=== PATIENT | female | born 2005 | race Caucasian/White ===

== ENCOUNTER 2025-05-07 21:17 | Emergency (ER) | payer OTHER ==
[2025-05-07] MEDS ORDERED: diphenhydrAMINE 50 MG/ML VIAL ONE (22:51)
[2025-05-07] MEDS ORDERED: Metoclopramide HCl 10 MG (2 mL) VIAL ONE (22:52)
[2025-05-07 22:56] LABS: #Basophils 0.03 10x3/uL (0.0-0.2); #Eosinophils 0.05 10x3/uL (0.0-0.5); #Monocytes 0.75 10x3/uL (0.0-1.1); #Neutrophils 5.93 10x3/uL (1.5-8.4); %Basophils 0.3 % (0.0-2.0); %Eosinophils 0.6 % (0.0-6.0); %Lymphocytes 22.7 % (18.0-47.0); %Monocytes 8.6 % (0.0-10.0); %Neutrophils 67.6 % (40.0-75.0); Hematocrit 37.2 % (34.9-44.5); Hemoglobin 12.8 g/dL (12.0-15.5); Mean Corpuscular Hemoglobin 30.8 pg (27.0-33.0); Mean Corpuscular Volume 89.6 fL (81.6-98.3); Platelet Count 347 10x3/uL (150-450); Red Blood Cell (RBC) Count 4.15 10x6/uL (3.90-5.03); White Blood Cell (WBC) Count 8.77 10x3/uL (3.5-10.5)
[2025-05-07 23:19] LABS: BHCG - Serum Negative (NEGATIVE); Pregs Control Background? CLEAR/WHITE (CLR/WHITE); Pregs Control Bar Appear? YES (CONTROL BAR)
[2025-05-07 23:26] LABS: ALT (SGPT) 8 U/L (Less than 34); AST (SGOT) 12 U/L (11-34); Albumin 5.0 g/dL (3.1-4.5); Alkaline Phosphatase 69 U/L (40-100); Anion Gap 11 mmol/L (10-20); BUN (Urea Nitrogen) 15 mg/dL (8.4-21.0); Bilirubin, Total 0.2 mg/dL (0.3-1.2); Calc. Creatinine Clearance 0 mL/min (70-130); Calcium 9.6 mg/dL (7.8-10.44); Carbon Dioxide 26 mmol/L (22-29); Chloride 106 mmol/L (98-107); Globulin 3.3 g/dL (2.4-3.5); Glucose 83 mg/dL (70-105); Lipase 25 U/L (8-78); Potassium 3.6 mmol/L (3.5-5.1); Sodium 139 mmol/L (136-145)
== END 2025-05-08 00:17 | disposition home or self-care (01) ==
LOC: CSHERS 21:17
DX: R55 Syncope and collapse (principal); S09.90XA Unspecified injury of head, initial encounter; R51.9 Headache, unspecified; W22.8XXA Striking against or struck by other objects, initial encounter
CPT/HCPCS: 70450; 80053; 83690; 84703; 85025; 93005; 96361; 96365; 96375; J1200; J2765